=== PATIENT | male | born 1975 | race Caucasian/White ===

== ENCOUNTER 2016-12-14 09:05 | Emergency (ER) | payer MEDICARE ==
[2016-12-14 09:22] VITALS: BP 180/103; PULSE 65; O2SAT 100
--- NOTE | 2016-12-14 09:51 | ERPHSYRPT ---
- History of Present Illness Time Seen by Provider: 12/14/16 09:48 Source: patient Exam Limitations: no limitations Patient Subjective Stated Complaint: lt arm weakness, lt foot swelling, rt flank pain, sore in mouth from infected teeth Triage Nursing Assessment: pt states lt arm weakness since yesterday 'i cant hardly hold a cigarette' lt arm 'heavy to lift and pain to wrist with movment'. lt foot swelling since yesterday--no injury. c/o rt side-no change with movement or deep breath. denies fever. productive cough with nasal congestion. skin warma dn dry. scabbed raymond noted to face. involuntary movement to lower extrem and arms. pulses present. neuro wnl. states occasional snorting 'speed which was a couple of days ago'. was admitted to several hospitals in past months 'but i have left against medical advice from all of them' Physician History: lt arm weakness, lt foot swelling, rt flank pain, sore in mouth from infected teeth, pt states lt arm weakness since yesterday 'i cant hardly hold a cigarette' lt arm 'heavy to lift and pain to wrist with movment'. lt foot swelling since yesterday--no injury. c/o rt side-no change with movement or deep breath. denies fever. productive cough with nasal congestion. skin warma dn dry. scabbed raymond noted to face. involuntary movement to lower extrem and arms. pulses present. neuro wnl. states occasional snorting 'speed which was a couple of days ago'. was admitted to several hospitals in past months 'but i have left against medical advice from all of them'. Patient states that he is homeless, [facility] and move around from one place to other, has not be able to establish a physician Associated Symptoms: other (see HPI) Allergies/Adverse Reactions: Penicillins Allergy (Verified 12/14/16 09:22) tramadol [From Ultram] Allergy (Verified 12/14/16 09:22) acetaminophen [From Tylenol] Adverse Reaction (Verified 12/14/16 09:22) Home Medications: Lamotrigine [Lamictal] 25 mg PO DAILY 12/14/16 [History] Venlafaxine HCl ER 75 mg [Effexor XR 75 MG] 75 mg PO DAILY 12/14/16 [ History] Hx Tetanus, Diphtheria Vaccination/Date Given: Yes Hx Influenza Vaccination/Date Given: No Hx Pneumococcal Vaccination/Date Given: No Immunizations Up to Date: Yes - Review of Systems Constitutional: No Fever, No Chills Eyes: No Symptoms Ears, Nose, & Throat: No Symptoms, Loose Teeth, Throat Pain Respiratory: No Cough, No Cyanosis, No Dyspnea Cardiac: Edema, No Chest Pain, No Syncope Abdominal/Gastrointestinal: No Abdominal Pain, No Nausea, No Vomiting, No Diarrhea Genitourinary Symptoms: No Dysuria Musculoskeletal: No Back Pain, No Neck Pain Skin: No Rash Neurological: No Dizziness, No Focal Weakness, No Sensory Changes Psychological: No Symptoms Endocrine: No Symptoms Hematologic/Lymphatic: No Symptoms Immunological/Allergic: No Symptoms All Other Systems: Reviewed and Negative - Past Medical History Pertinent Past Medical History: Yes Cardiac History: Hypertension Psycho-Social History: Bipolar, Depression Other Medical History: dopamine def disorder - Past Surgical History Past Surgical History: Yes Gastrointestinal: Cholecystectomy Other Surgical History: gastric bypass-2007. degen disc. ulcer repair--ate thru gastric pouch - Social History Smoking Status: Current every day smoker Exposure to second hand smoke: No Drug Use: other Patient Lives Alone: No - Nursing Vital Signs Nursing Vital Signs: Initial Vital Signs Temperature 97.7 F Temperature Source Oral Pulse Rate 65 Respiratory Rate 18 Blood Pressure [] 180/103 Pain Intensity 5 - Physical Exam General Appearance: no apparent distress, alert Eye Exam: PERRL/EOMI, eyes nml inspection Ears, Nose, Throat Exam: normal ENT inspection, TMs normal, pharynx normal, moist mucous membranes Neck Exam: normal inspection, non-tender, supple, full range of motion Respiratory Exam: normal breath sounds, lungs clear, No respiratory distress Cardiovascular Exam: regular rate/rhythm, normal heart sounds, normal peripheral pulses, edema (1 + pedal edema) Gastrointestinal/Abdomen Exam: soft, normal bowel sounds, No tenderness, No mass Back Exam: normal inspection, normal range of motion, No CVA tenderness, No vertebral tenderness Extremity Exam: normal inspection, normal range of motion, pelvis stable Neurologic Exam: alert, oriented x 3, cooperative, normal mood/affect, nml cerebellar function, nml station & gait, sensation nml, No motor deficits Skin Exam: normal color, warm, dry, No rash Lymphatic Exam: No adenopathy SpO2: 100 Oxygen Delivery: Room Air - Course Nursing assessment & vital signs reviewed: Yes EKG Interpreted by Me: Sinus Rhythm - Radiology Exams Chest X-ray Interpretation: Reviewed by me Ordered Tests: Active Orders 24 hr Category Date Time Status EKG-ER Only STAT Care 12/14/16 09:45 Active CHEST 2 VIEWS (PA AND LAT) Stat Exams 12/14/16 09:47 Ordered CBC W DIFF Stat Lab 12/14/16 09:45 Ordered CMP Stat Lab 12/14/16 09:45 Ordered Lactic Acid Urgent Lab 12/14/16 09:45 Ordered TROPONIN Stat Lab 12/14/16 10:00 Ordered UA Stat Lab 12/14/16 09:46 Ordered Urine Triage Profile Stat Lab 12/14/16 09:46 Ordered - Progress Progress Note: 12/14/16 09:52 patient left suddenly without getting any labs or xrays and ekg done - Departure Time of Disposition: 09:53 Departure Disposition: Left without being seen Clinical Impression: Edema extremities Condition: Stable Critical Care Time: No Referrals: DOCTOR,NO FAMILY [Primary Care Provider] -
== END 2016-12-14 09:50 | disposition left against medical advice (07) ==
LOC: ED 09:05
DX: R60.9 Edema, unspecified (principal)
CPT/HCPCS: 99281

== ENCOUNTER 2018-05-08 19:48 | Emergency (ER) | payer MEDICARE ==
--- NOTE | 2018-05-08 20:13 | ERPHSYRPT ---
- History of Present Illness Time Seen by Provider: 05/08/18 20:13 Source: patient, EMS Physician History: 42 y/o white male presents with multiple complaints including skin sores, weight loss, anxiety/panic attack, dehydration. he states he did fall and hit his head today. he feels his head is full of fluid. denies recent illicit drug use but has used in past. pt had a gastric bypass in 2007. pt is not taking any medications and has not seen an outpt physician in over a year. pt denies soa, cp, abd pain. Timing/Duration: other (chronic) Quality: other (weakness) Severity: mild Location: other (generalized) Possible Causes: no cause identified Associated Symptoms: other (multiple generalized sores), No difficulty breathing , No edema, No fever, No headache Allergies/Adverse Reactions: Penicillins Allergy (Verified 05/08/18 20:23) tramadol [From Ultram] Allergy (Verified 05/08/18 20:23) acetaminophen [From Tylenol] Adverse Reaction (Verified 05/08/18 20:23) Hx Tetanus, Diphtheria Vaccination/Date Given: Yes Hx Influenza Vaccination/Date Given: No Hx Pneumococcal Vaccination/Date Given: No - Review of Systems Constitutional: Weakness Eyes: No Symptoms, No Discharge, No Eye Pain, No Vision Changes Ears, Nose, & Throat: No Symptoms, No Ear Pain, No Nose Pain, No Nose Congestion Respiratory: No Symptoms, No Cough, No Dyspnea, No Stridor, No Wheezing Cardiac: No Symptoms, No Chest Pain, No Edema, No Palpitations, No Syncope Abdominal/Gastrointestinal: No Symptoms, No Abdominal Pain, No Nausea, No Vomiting, No Diarrhea Genitourinary Symptoms: No Symptoms, No Dysuria, No Frequency, No Hematuria Musculoskeletal: No Symptoms Skin: Skin Lesions Neurological: Headache Psychological: Anxiety, Depression, Other (bipolar) Endocrine: Other (weight loss) Hematologic/Lymphatic: No Symptoms Immunological/Allergic: No Symptoms All Other Systems: Reviewed and Negative - Past Medical History Pertinent Past Medical History: Yes Neurological History: No Pertinent History ENT History: No Pertinent History Cardiac History: Hypertension Respiratory History: No Pertinent History Endocrine Medical History: No Pertinent History Musculoskeletal History: No Pertinent History GI Medical History: Other (gastric bypass) Psycho-Social History: Bipolar, Depression Male Reproductive Disorders: No Pertinent History Other Medical History: dopamine def disorder - Past Surgical History Past Surgical History: Yes Gastrointestinal: Cholecystectomy, Other (gastric bypass) Genitourinary: No Pertinent History Musculoskeletal: No Pertinent History Male Surgical History: No Pertinent History Other Surgical History: gastric bypass-2008. degen disc. ulcer repair--ate thru gastric pouch - Social History Smoking Status: Current every day smoker Exposure to second hand smoke: No Drug Use: other Patient Lives Alone: No - Nursing Vital Signs Nursing Vital Signs: Initial Vital Signs Temperature 98.0 F 05/08/18 20:00 Pulse Rate 60 05/08/18 20:00 Blood Pressure 226/121 05/08/18 20:00 O2 Sat by Pulse Oximetry 98 05/08/18 20:00 Pain Scale Pain Intensity 8 - Physical Exam General Appearance: mild distress, alert, anxiety Eye Exam: PERRL/EOMI, eyes nml inspection Ears, Nose, Throat Exam: normal ENT inspection Neck Exam: normal inspection, non-tender, supple, full range of motion Respiratory Exam: normal breath sounds, lungs clear, airway intact, No chest tenderness, No respiratory distress, No rhonchi, No wheezing, No stridor Cardiovascular Exam: regular rate/rhythm, normal heart sounds, normal peripheral pulses Gastrointestinal/Abdomen Exam: soft, normal bowel sounds, No tenderness, No guarding, No rebound Rectal Exam: not done Back Exam: normal inspection, normal range of motion, No CVA tenderness, No vertebral tenderness Extremity Exam: normal inspection, normal range of motion, pelvis stable Neurologic Exam: alert, oriented x 3, cooperative, bag patcher II-XII nml as tested, other (anxious) Skin Exam: pale, other (multiple genralized eschar skin lesions) Lymphatic Exam: No adenopathy SpO2 Interpretation: normal - Course Nursing assessment & vital signs reviewed: Yes EKG Interpreted by Me: RATE (50), Sinus Rhythm, NORMAL AXIS, NORMAL INTERVALS, Non-specific ST Changes Ordered Tests: Active Orders 24 hr Category Date Time Status Clean Catch Urine Specimen STAT Care 05/08/18 20:45 Active EKG-ER Only STAT Care 05/08/18 20:45 Active IV Insertion STAT Care 05/08/18 20:45 Active Orthostatic Vital Signs STAT Care 05/08/18 20:45 Active HEAD WITHOUT CONTRAST [CT] Stat Exams 05/08/18 20:46 Completed CBC W DIFF Stat Lab 05/08/18 21:00 Completed CMP Stat Lab 05/08/18 21:00 Completed ETHYL ALCOHOL Stat Lab 05/08/18 21:00 Completed UA W/RFX UR CULTURE Stat Lab 05/08/18 21:29 Completed Urine Triage Profile Stat Lab 05/08/18 21:29 Completed Medication Summary Discontinued Medications Generic Name Dose Route Start Last Admin Trade Name Emanuel PRN Reason Stop Dose Admin Clonidine 0.1 mg 05/08/18 20:47 05/08/18 20:59 Catapres 0.1 Mg PO 05/08/18 20:48 0.1 mg STAT ONE Administration Clonidine Confirm 05/08/18 20:54 Catapres 0.1 Mg Administered 05/08/18 20:55 Dose 0.1 mg .ROUTE .STK-MED ONE Sodium Chloride 1,000 mls @ 999 mls/hr 05/08/18 20:45 05/08/18 20:59 Sodium Chloride 0.9% 1000 Ml IV 05/08/18 21:45 999 mls/hr .Q1H1M STA Administration Sodium Chloride Confirm 05/08/18 20:54 Sodium Chloride 0.9% 1000 Ml Administered 05/08/18 20:55 Dose 1,000 mls @ ud .ROUTE .STK-MED ONE Lab/Rad Data: Laboratory Result Diagrams 05/08/18 21:00 05/08/18 21:00 Laboratory Results 05/08/18 05/08/18 05/08/18 Range/Units 21:29 21:29 21:00 WBC (4.0-10.5) K/mm3 RBC (4.1-5.6) M/mm3 Hgb (12.5-18.0) gm/dl Hct (42-50) % MCV (78-100) fl MCH (26-32) pg MCHC (32-36) g/dl RDW (11.5-14.0) % Plt Count (150-450) K/mm3 MPV (6-9.5) fl Gran % (36.0-66.0) % Eos # (Auto) (0-0.5) Absolute Lymphs (auto) (1.0-4.6) Absolute Monos (auto) (0.0-1.3) Lymphocytes % (24.0-44.0) % Monocytes % (0.0-12.0) % Eosinophils % (0.00-5.0) % Basophils % (0.0-0.4) % Absolute Granulocytes (1.4-6.9) Basophils # (0-0.4) Sodium 139 (137-145) mmol/L Potassium 3.4 L (3.5-5.1) mmol/L Chloride 100 (98-107) mmol/L Carbon Dioxide 30 (22-30) mmol/L Anion Gap 12.4 (5-15) MEQ/L BUN 9 (9-20) mg/dL Creatinine 0.80 (0.66-1.25) mg/dL Estimated GFR > 60.0 ML/MIN Glucose 98 (74-106) mg/dL Calcium 9.4 (8.4-10.2) mg/dL Total Bilirubin 0.60 (0.2-1.3) mg/dL AST 30 (17-59) U/L ALT 21 (0-50) U/L Alkaline Phosphatase 76 (38-126) U/L Serum Total Protein 7.5 (6.3-8.2) g/dL Albumin 4.2 (3.5-5.0) g/dL Urine Color STRAW (YELLOW) Urine Appearance CLEAR (CLEAR) Urine pH 7.0 (5-6) Ur Specific Spruce 1.003 (1.005-1.025) Urine Protein NEGATIVE (Negative) Urine Ketones NEGATIVE (NEGATIVE) Urine Blood NEGATIVE (0-5) Dru/ul Urine Nitrite NEGATIVE (NEGATIVE) Urine Bilirubin NEGATIVE (NEGATIVE) Urine Urobilinogen NEGATIVE (0-1) mg/dL Ur Leukocyte Esterase NEGATIVE (NEGATIVE) U Epithel Cells (Auto) NONE SEEN (FEW) /HPF Urine Culture Reflexed NO (NO) Urine Glucose NEGATIVE (NEGATIVE) mg/dL Urine Opiates Level NEGATIVE (NEGATIVE) Ur Methadone NEGATIVE (NEGATIVE) Urine Barbiturates NEGATIVE (NEGATIVE) Ur Phencyclidine (PCP) NEGATIVE (NEGATIVE) Urine Amphetamine POSITIVE (NEGATIVE) U Benzodiazepine Level NEGATIVE (NEGATIVE) Urine Cocaine NEGATIVE (NEGATIVE) Urine Marijuana (THC) NEGATIVE (NEGATIVE) Ethyl Alcohol < 10 (0-10) mg/dL 05/08/18 Range/Units 21:00 WBC 5.6 (4.0-10.5) K/mm3 RBC 3.96 L (4.1-5.6) M/mm3 Hgb 8.2 L (12.5-18.0) gm/dl Hct 26.5 L (42-50) % MCV 66.9 L (78-100) fl MCH 20.7 L (26-32) pg MCHC 30.9 L (32-36) g/dl RDW 14.9 H (11.5-14.0) % Plt Count 420 (150-450) K/mm3 MPV 9.2 (6-9.5) fl Gran % 51.7 (36.0-66.0) % Eos # (Auto) 0.11 (0-0.5) Absolute Lymphs (auto) 1.59 (1.0-4.6) Absolute Monos (auto) 0.88 (0.0-1.3) Lymphocytes % 28.5 (24.0-44.0) % Monocytes % 15.8 H (0.0-12.0) % Eosinophils % 2.0 (0.00-5.0) % Basophils % 2.0 (0.0-0.4) % Absolute Granulocytes 2.89 (1.4-6.9) Basophils # 0.11 (0-0.4) Sodium (137-145) mmol/L Potassium (3.5-5.1) mmol/L Chloride (98-107) mmol/L Carbon Dioxide (22-30) mmol/L Anion Gap (5-15) MEQ/L BUN (9-20) mg/dL Creatinine (0.66-1.25) mg/dL Estimated GFR ML/MIN Glucose (74-106) mg/dL Calcium (8.4-10.2) mg/dL Total Bilirubin (0.2-1.3) mg/dL AST (17-59) U/L ALT (0-50) U/L Alkaline Phosphatase (38-126) U/L Serum Total Protein (6.3-8.2) g/dL Albumin (3.5-5.0) g/dL Urine Color (YELLOW) Urine Appearance (CLEAR) Urine pH (5-6) Ur Specific Spruce (1.005-1.025) Urine Protein (Negative) Urine Ketones (NEGATIVE) Urine Blood (0-5) Dru/ul Urine Nitrite (NEGATIVE) Urine Bilirubin (NEGATIVE) Urine Urobilinogen (0-1) mg/dL Ur Leukocyte Esterase (NEGATIVE) U Epithel Cells (Auto) (FEW) /HPF Urine Culture Reflexed (NO) Urine Glucose (NEGATIVE) mg/dL Urine Opiates Level (NEGATIVE) Ur Methadone (NEGATIVE) Urine Barbiturates (NEGATIVE) Ur Phencyclidine (PCP) (NEGATIVE) Urine Amphetamine (NEGATIVE) U Benzodiazepine Level (NEGATIVE) Urine Cocaine (NEGATIVE) Urine Marijuana (THC) (NEGATIVE) Ethyl Alcohol (0-10) mg/dL ct head- no acute pathology. - Progress Progress: unchanged, re-examined Counseled pt/family regarding: lab results, diagnosis, need for follow-up, rad results - Departure Time of Disposition: 22:04 Departure Disposition: Home Clinical Impression: Hypertension, Chronic anemia, Hypertensive urgency Condition: Stable Critical Care Time: Yes Critical Care Time(excluding separately billable procedures): 30-74 minutes Referrals: DOCTOR,NO FAMILY [Primary Care Provider] - Additional Instructions: drink plenty of fluids. take over the counter iron and take 2 times daily. follow up with primary doctor for further management. Prescriptions: Hydrochlorothiazide 25 mg [hydroDIURIL 25 MG] 25 mg PO DAILY #10 tablet
[2018-05-08] MEDS ORDERED: Sodium Chloride 0.9% 1000 ML 1,000 ML IV STA (20:45)
[2018-05-08] MEDS ORDERED: Catapres 0.1 MG PO ONE (20:47)
[2018-05-08] MEDS ORDERED: Catapres 0.1 MG ONE (20:54)
[2018-05-08] MEDS ORDERED: Sodium Chloride 0.9% 1000 ML 1,000 ML ONE (20:54)
[2018-05-08 21:18] LABS: Basophil (Absolute #) 0.11 (0-0.4); Eosinophil (Absolute #) 0.11 (0-0.5); Granulocyte Absolute (ANC) 2.89 (1.4-6.9); Granulocytes % 51.7 % (36.0-66.0); Hematocrit 26.5 % (42-50); Hemoglobin 8.2 gm/dl (12.5-18.0); Lymphocyte (Absolute #) 1.59 (1.0-4.6); Lymphocytes % 28.5 % (24.0-44.0); Mean Cell Volume 66.9 fl (78-100); Mean Corpuscular Hemoglobin 20.7 pg (26-32); Mean Corpuscular Hgb Concent. 30.9 g/dl (32-36); Mean Platelet Volume 9.2 fl (6-9.5); Monocyte (Absolute #) 0.88 (0.0-1.3); Monocytes % 15.8 % (0.0-12.0); Platelet Count 420 K/mm3 (150-450); Red Blood Count 3.96 M/mm3 (4.1-5.6); Red Cell Distribution Width 14.9 % (11.5-14.0); White Blood Count 5.6 K/mm3 (4.0-10.5)
[2018-05-08 21:39] LABS: Appearance CLEAR (CLEAR); Bilirubin NEGATIVE (NEGATIVE); Blood NEGATIVE Ery/ul (0-5); Glucose NEGATIVE (NEGATIVE); Ketones NEGATIVE (NEGATIVE); Leukocyte Esterase NEGATIVE (NEGATIVE); Nitrite NEGATIVE (NEGATIVE); Protein,Urine Dip NEGATIVE (Negative); Specific Gravity 1.003 (1.005-1.025); Urobilinogen NEGATIVE mg/dL (0-1)
[2018-05-08 21:41] LABS: ALBUMIN 4.2 g/dL (3.5-5.0); ALKALINE PHOSPHATASE 76 U/L (38-126); ANION GAP 12.4 MEQ/L (5-15); BLOOD UREA NITROGEN 9 mg/dL (9-20); CHLORIDE 100 mmol/L (98-107); Calcium 9.4 mg/dL (8.4-10.2); Carbon Dioxide 30 mmol/L (22-30); Glucose 98 mg/dL (74-106); Potassium 3.4 mmol/L (3.5-5.1); SGOT/AST 30 U/L (17-59); SGPT/ALT 21 U/L (0-50); SODIUM 139 mmol/L (137-145); Total Protein 7.5 g/dL (6.3-8.2)
--- NOTE | 2018-05-08 21:43 | XRAY ---
Indication: Headache following head injury. History of bipolar disorder. Multiple contiguous axial images obtained through the head without contrast. Comparison: None Normal appearing brain parenchyma, ventricles, and bony calvarium. Visualized paranasal sinuses and mastoid air cells are clear. Impression: Normal CT head without contrast exam. CTDI 59.95
[2018-05-08 21:44] LABS: ETHYL ALCOHOL < 10 mg/dL (0-10)
[2018-05-08 21:53] LABS: Amphetamine,Urine POSITIVE (NEGATIVE); Barbiturate,Urine NEGATIVE (NEGATIVE); Benzodiazepine,Urine NEGATIVE (NEGATIVE); Cocaine,Urine NEGATIVE (NEGATIVE); Methadone,Urine NEGATIVE (NEGATIVE); Opiate,Urine NEGATIVE (NEGATIVE); PCP,Urine NEGATIVE (NEGATIVE); THC,Urine NEGATIVE (NEGATIVE)
[2018-05-08] MEDS ORDERED: Ativan 2 MG/1 ML VIAL IV ONE (22:11)
[2018-05-08 22:50] VITALS: PULSE 55
[2018-05-09 00:08] VITALS: BP 175/95; O2SAT 100
[2018-05-09 04:29] LABS: Slide Review 1 YES
== END 2018-05-09 00:09 | disposition home or self-care (01) ==
LOC: ED 19:48
DX: I10 Essential (primary) hypertension (principal); D53.9 Nutritional anemia, unspecified; I16.0 Hypertensive urgency; F41.9 Anxiety disorder, unspecified; F31.9 Bipolar disorder, unspecified; Z72.0 Tobacco use
CPT/HCPCS: 36415; 70450; 80053; 80307; 81001; 85025; 93005; 96360; 99284; A9270-GY; G0480